=== PATIENT | male | born 1990 | race African-American/Black ===

== ENCOUNTER 2023-09-26 07:59 | Inpatient (IN) | payer OTHER, SELFPAY ==
[2023-09-23 11:16] VITALS: BP 137/82
[2023-09-23 13:11] LABS: % Basophils 0.3 % (0-2); % Eosinophils 2.2 % (0-6); % Immature Granulocytes 0.3 % (0-0.5); % Lymphocytes 14.1 % (20.5-51.1); % Monocytes 6.3 % (1.7-9.3); % Neutrophils 76.8 % (42.2-75.2); Absolute Eosinophils 0.3 10^3/uL (0-0.7); Absolute Lymphocytes 1.7 10^3/uL (1.2-3.4); Absolute Monocytes 0.8 10^3/uL (0.1-0.6); Absolute Neutrophils 9.1 10^3/uL (1.4-6.5); Hematocrit 42.2 % (39.0-52.0); Hemoglobin 13.7 g/dL (13.0-18.0); Mean Corp Hgb Conc. 32.5 g/dL (33.0-37.0); Mean Corpuscular Hgb 25.8 pg (27.0-31.0); Mean Corpuscular Volume 79.3 fL (80.0-94.0); Mean Platelet Volume 9.3 fL (7.4-10.4); Nucleated Red Blood Cells % 0 % (-); Platelet Count 357 10^3/uL (130-400); Red Blood Cell Count 5.32 10^6/uL (4.70-6.10); Red Cell Dist. Width 13.3 % (11.5-14.5); White Blood Cell Count 11.9 10^3/uL (4.8-10.8)
--- NOTE | 2023-09-23 13:14 | ED.GENMED ---
History of Present Illness
General
Chief Complaint: Skin Problem
Source: patient
Exam Limitations: none
Time Seen by Provider: 09/23/23 12:02
Nursing documentation reviewed up to this point in time: agreed with
History of Present Illness
History of Present Illness:
pt is a 32 y/o M prisoner from [facility]
on eliquis for h/o DVT
says about 1 week ago he developed what he is calling a 'hair bump' in the right facial hair right submandibular region and it has grown over th past week
he just notified someone from medical who sent him in for oncern for large area swelling and possible IV abx
they did start bactrim this morning
pt has had another abcess on the other side of his bennett a while back that ruptured on its own
he has no voice change, no painful swallowing, no trouble breathing
no night sweats, no weight loss
Past History
Past History
ED Past Medical History: Other (dvt)
Social History
Tobacco: Smoker
Living: skilled nursing
Review of Systems
Review of Systems
Allergies reviewed?: Yes
All Other Systems: Not applicable
Phy Exam
Physical Exam
Physical Exam:
GENERAL: Alert , in no apparent distress
EYE: pupils equal and reactive
NECK: Supple
large fluctuant abscess right submandibular area within the bennett, mild tenderness
ENT: o/p clr, mmm.
submental space soft
no swelling of the parotid
CARDIAC: Regular rate and rhythm .
LUNGS: Clear breath sounds bilaterally, no acute respiratory distress, no wheezes/rales/rhonchi
NEUROLOGICAL: Alert and oriented, no focal neuro deficits
SKIN: Warm and dry, skin intact.
MUSCULOSKELETAL: No edema, well perfused. neg audra's sign
PSYCH: Normal and appropriate interaction.
Course
Orders/Labs/Results
Orders:
Orders
09/23/23 12:00
Complete Blood Count/With Diff Urgent
Comprehensive Metabolic Panel Urgent
Monotest Urgent
Blood Culture Q30M
DAVID Source: Blood/Venous
Specimen Description:
09/23/23 12:25
CT Neck With Iv Contrast Urgent
Comment:
Reason For Exam: right sided neck abscess submandibular, large
09/23/23 12:45
Blood Culture Q30M
DAVID Source: Blood/Venous
Specimen Description:
09/23/23 15:49
MRSA Screen Routine
DAVID Source: Nose
Specimen Description:
09/23/23 15:56
Vancomycin [Vancocin] 2,000 mg 0.9% Sodium Chloride 500 ml [Nss] 500 ml IV NOW
09/23/23 16:21
Admit/Transfer Patient As Directed
Co-Sign Provider:
Level of Care: Observation services
Assign to:: Medical/Surgical
Physician / Group: ricci
Diagnosis: sbcutacaenous abscess right neck
Code Status As Directed
Resuscitation Status: Full Code
Abnormal Lab Results
09/23/23
12:00
WBC 11.9 H 10^3/uL
(4.8-10.8)
MCV 79.3 L fL
(80.0-94.0)
MCH 25.8 L pg
(27.0-31.0)
MCHC 32.5 L g/dL
(33.0-37.0)
Absolute Neuts (auto) 9.1 H 10^3/uL
(1.4-6.5)
Absolute Monos (auto) 0.8 H 10^3/uL
(0.1-0.6)
Neutrophils % 76.8 H %
(42.2-75.2)
Lymphocytes % 14.1 L %
(20.5-51.1)
09/23/23 12:00
09/23/23 12:00
Vital Signs
Initial and Last Documented VS:
Initial Vital Signs
Temp Pulse Resp BP Pulse Ox
98.8 F 88 20 137/82 98
09/23/23 11:16 09/23/23 11:16 09/23/23 11:16 09/23/23 11:16 09/23/23 11:16
Last Documented Vital Signs
Temp Pulse Resp BP Pulse Ox
98.8 F 88 20 137/82 98
09/23/23 11:16 09/23/23 11:16 09/23/23 11:16 09/23/23 11:16 09/23/23 11:16
MDM/Problems Addressed
Differential Diagnosis Includes:
abscess, parotidits, lymphoma,
MDM/Problems Addressed:
32 y/o M h/o dvt on eliquis; from [facility]; neck abscess within his facial hair which he says started 1 week ago, no airway issues, no swallowing problems; no fever;
no submental swelling, sublingual swelling;
wbc 12
[address] shows a large abscess right neck with some peripheral wall edema, it is inferior and lateral to parotid; d/w ENT stiefel who will see pt in consult; will hold on I&D by ED at this time pending ENT eval; he did not feel pt would likely need OR.;
recommended iv vanc;
*Critical Care Note
Total Time (30-74mins, 75-104mins- exclusive of procedures): Not Applicable
ED Attending Note
-
Portions of this chart may have been created with voice recognition software.� Occasional wrong word or��sound alike� substitutions may have occurred due to the inherent limitations of voice recognition software.
Discharge Plan
Departure
Patient Disposition: Admit
Date of Disposition: 09/23/23
Time of Disposition: 15:48
Admit to: Med/Surg
Presentation/result/management discussed w/ accepting MD/DO: Hospitalist
Condition: Fair
Covid-19: Not Applicable
Discharge Problem:
Abscess of skin of neck
Interventions
Interventions:
*Risk Screen - Suicide Last Done: 09/23/23 11:16
*General Assessment Last Done: 09/23/23 11:16
*Neglect/Abuse Screening Last Done: 09/23/23 11:16
ED-Skin Assessment Last Done: 09/23/23 12:33
[2023-09-23 13:24] LABS: ALT (SGPT) 24 U/L (0-50); AST (SGOT) 21 U/L (17-59); Albumin 4.4 g/dl (3.5-5.0); Alkaline Phosphatase 95 U/L (38-126); Blood Urea Nitrogen 11 mg/dl (9-20); Calcium 9.8 mg/dl (8.4-10.2); Carbon Dioxide 28 mmol/L (22-30); Chloride 100 mmol/L (98-107); Estimated Creatinine Clearance 121 ml/min; Glucose 83 mg/dl (70-99); Potassium 4.5 mmol/L (3.5-5.1); Sodium 139 mmol/L (135-145); Total Bilirubin 0.5 mg/dl (0.2-1.3); Total Protein 8.2 g/dl (6.3-8.2); eGFR > 60.00
[2023-09-23 13:26] LABS: Monotest Negative (Negative)
--- NOTE | 2023-09-23 16:24 | HPS.HSE ---
Family Physician
-
Family Physician: Facility [facility]
Chief Complaint
-
right facial swelling
History of Present Illness
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
submandibular region which he picked a week ago. Since then he has been having swelling in the region and some drainage of pus from the skin. He does have some mild pain with swallowing. He denies difficulty breathing. He denies any fevers or
chills.
He was started on Bactrim this morning and tried using warm compress today without improvement.
He had another abscess on the left side of his bennett previously that ruptured on its own and has now resolved.
He denies any current drug use.
Medical History
Past Medical History
Past Medical History: Reports Other (DVT in 2008 and recurrence in 2016 on Eliquis, Crohn's disease, anxiety/depression, schizophrenia)
Past Surgical History: Reports None
Social History
Tobacco: Non-smoker
Alcohol: None
Drug: None
Family History
Family History: Not pertinent
Allergies / Home Medications
Allergies reflects when Allergies were last updated in [employer].
Home Medications with original date entered in [employer]
Allergy/Medication List:
Allergies
Allergy/AdvReac Type Severity Reaction Status Date / Time
No Known Allergies Allergy Unverified 09/23/23 11:22
Home Medications
apixaban 5 mg tablet (Eliquis) 5 mg PO BID 09/23/23
ibuprofen 400 mg tablet 400 mg PO BID 09/23/23
mirtazapine 45 mg tablet 45 mg PO HS 09/23/23
perphenazine 4 mg tablet 4 mg PO BID 09/23/23
prazosin 1 mg capsule 1 mg PO HS 09/23/23
Review of Systems
-
History Source: Patient
A 12 point ROS was completed and negative except as noted: Yes
Constitutional: Reports No Symptoms
EENT: Reports No Symptoms
Respiratory: Reports No Symptoms
Cardiac: Reports No Symptoms
Abdomen/GI: Reports No Symptoms
: Reports No Symptoms
Musculoskeletal: Reports No Symptoms
Skin: Reports See HPI
Neurological: Reports No Symptoms
Endocrine: Reports No Symptoms
Hematologic/Lymphatic: Reports No Symptoms
Psych: Reports No Symptoms
Physical Exam
Vital Signs
Vital Signs
Temp Pulse Resp BP Pulse Ox
98.8 F 88 20 137/82 98
09/23/23 11:16 09/23/23 11:16 09/23/23 11:16 09/23/23 11:16 09/23/23 11:16
Physical Exam
General: Well Developed, Well Nourished and No Apparent Distress
HEENT: NormoCephalic, Moist mucous membranes and Atraumatic
Respiratory: Clear
Cardiac: S1/S2 and Regular Rhythm; No Murmur or Rub
GI: Soft, Non Tender, Non Distended and Normal Bowel Sounds; No Organomegaly
Rectal: Deferred by Provider
Musculoskeletal: No Clubbing, No Cyanosis and No Edema
Skin: Other (right facial swelling, crusted follicle ); No Rash
Neuro: Nonfocal/grossly intact
Laboratory Results
-
09/23/23 12:00
09/23/23 12:00
Laboratory Results
Total Bilirubin 0.5 mg/dl (0.2-1.3) 09/23/23 12:00
AST 21 U/L (17-59) 09/23/23 12:00
ALT 24 U/L (0-50) 09/23/23 12:00
Alkaline Phosphatase 95 U/L (38-126) 09/23/23 12:00
Data Reviewed
-
Lab Data: Labs Reviewed by me
Old Records: Reviewed
Impression/Plan
-
IMPRESSION:
PLAN:
# Subcutaneous abscess right side of the neck due to infected skin follicle
-As per CT scan measuring 3.9 x 3.3 x 2 cm located superficial lateral to the deep inferior aspect of the parotid gland
-Blood cultures
-Vancomycin
-ENT to see patient
-N.p.o. for now, can likely start diet after ENT evaluation/I&D
-Continue ibuprofen for pain
History of DVT in 2008, recurrent in 2016
-Hold Eliquis until I&D can be performed
Crohn's disease
Anxiety/depression
-Continue mirtazapine, prazosin
Schizophrenia
-Continue perphenazine
Full code
DVT prophylaxis�none
N.p.o. for now
[2023-09-23] MEDS: MORPHINE SULFATE 4 MG IV (17:51)
--- NOTE | 2023-09-23 19:24 | PHA.VAN.IN ---
Assessment
- Assessment
Renal Function: Unknown baseline
Concomitant Antimicrobials: NONE
- Previous Dosing Experience
Previous Regimen: NONE
AUC Dosing Plan
- Dosing Variables
Dosing Weight (kg): 87.2
Dosing CrCl (ml/min): 121
Vd coefficient (L/kg): 0.7
- Empiric Dosing
Initial / Loading Dose: 2GM
Maintenance Regimen: 1GM IV Q8H
Estimated AUC (mcg*h/mL): 493
Estimated Peak (mcg*h/mL): 28.9
Estimated Trough (mcg/ml): 13.9
Estimated Half Life (H): 6.6
Pharmacokinetics Vancomycin I
- -
Patient Age: 32
Patient Sex: Male
Vancomycin Day #: 1
Indication: Skin And Soft Tissue (INFECTED HAIR FOLLICLE)
Requesting Provider: PRECIOUS
Height / Weight:
Height 5 ft 10 in
Actual Weight 87.22 kg
Pertinent Past Medical History: PRIOR TX WITH BACTRIM
- Vital Signs / Lab Results
Temp Pulse Resp BP Pulse Ox
98.8 F 88 20 137/82 98
09/23/23 11:16 09/23/23 11:16 09/23/23 11:16 09/23/23 11:16 09/23/23 11:16
Lab Results - Hematology
09/23/23
12:00
WBC 11.9 H
Lab Results - Chemistry
09/23/23
12:00
BUN 11
Creatinine 0.9
Estimated Creat Clear 121
Albumin 4.4
[2023-09-23 19:29] VITALS: BP 124/78; BMI 26.7
[2023-09-23] MEDS: MOTRIN 400 MG PO (20:28)
[2023-09-23] MEDS: TRILAFON 4 MG PO (20:28)
[2023-09-23] MEDS: VANCOCIN 540 MG IV (20:28)
[2023-09-23] MEDS: MINIPRESS 1 MG PO (23:01)
[2023-09-23] MEDS: REMERON 45 MG PO (23:01)
[2023-09-23 23:11] VITALS: BP 115/92
[2023-09-24] MEDS: VANCOCIN 200 IV (05:54)
[2023-09-24 07:00] VITALS: BP 108/67
[2023-09-24 07:03] LABS: % Basophils 0.4 % (0-2); % Eosinophils 5.6 % (0-6); % Immature Granulocytes 0.4 % (0-0.5); % Lymphocytes 15.5 % (20.5-51.1); % Monocytes 8.6 % (1.7-9.3); % Neutrophils 69.5 % (42.2-75.2); Absolute Eosinophils 0.4 10^3/uL (0-0.7); Absolute Lymphocytes 1.2 10^3/uL (1.2-3.4); Absolute Monocytes 0.6 10^3/uL (0.1-0.6); Absolute Neutrophils 5.2 10^3/uL (1.4-6.5); Hemoglobin 13.4 g/dL (13.0-18.0); Mean Corp Hgb Conc. 33.5 g/dL (33.0-37.0); Mean Corpuscular Hgb 26.1 pg (27.0-31.0); Mean Platelet Volume 9.6 fL (7.4-10.4); Nucleated Red Blood Cells % 0 % (-); Platelet Count 346 10^3/uL (130-400); Red Blood Cell Count 5.13 10^6/uL (4.70-6.10); Red Cell Dist. Width 13.3 % (11.5-14.5); White Blood Cell Count 7.5 10^3/uL (4.8-10.8)
[2023-09-24 07:39] LABS: ALT (SGPT) 19 U/L (0-50); AST (SGOT) 20 U/L (17-59); Albumin 3.7 g/dl (3.5-5.0); Alkaline Phosphatase 83 U/L (38-126); Blood Urea Nitrogen 12 mg/dl (9-20); Calcium 9.4 mg/dl (8.4-10.2); Carbon Dioxide 26 mmol/L (22-30); Chloride 104 mmol/L (98-107); Estimated Creatinine Clearance 112 ml/min; Glucose 83 mg/dl (70-99); Potassium 4.7 mmol/L (3.5-5.1); Sodium 138 mmol/L (135-145); Total Bilirubin 0.5 mg/dl (0.2-1.3); Total Protein 7.1 g/dl (6.3-8.2); eGFR > 60.00
--- NOTE | 2023-09-24 07:50 | W.PN.HOSP.TC ---
Today's Communication/Plan
-
see bold, possible d/c later today after seen by ID
Assessment / Plan
Assessment / Plan
Gen: NAD, AAOx3.
Eyes: EOMI, PERRLA, no scleral icterus.
ENMT: Right facial soft tissue edema with overlying dressing with seropurulent drainage
Neck: supple.
CV: RRR, +S1/S2, no m/r/g.
Resp: CTAB, no rales, wheezes, or rhonchi.
Abd: +BS, soft, NT, ND
Skin: No rashes.
Neuro: CN 2-12 intact, non-focal.
Psych: Normal mood and affect.
Subcutaneous abscess right side of the neck due to infected skin follicle:
-As per CT scan measuring 3.9 x 3.3 x 2 cm located superficial lateral to the deep inferior aspect of the parotid gland
-drained by Dr. Delatorre 09/23/23, 10cc puss
-follow BCxs/WCxs
-cont Vancomycin
-ID to see patient
-Continue ibuprofen for pain
History of DVT in 2008, recurrent in 2015
-Hold Eliquis until I&D can be performed
Crohn's disease
Anxiety/depression
-Continue mirtazapine, prazosin
Schizophrenia
-Continue perphenazine
Full code
Anticipated Discharge: Today
Subjective/Interval History
-
Date of Service: September 24, 2023
No new complaints.
Objective Data
-
Labs:
Laboratory Results
09/24/23
06:30
WBC 7.5
Hgb 13.4
Hct 40.0
Plt Count 346
Sodium 138
Potassium 4.7
Chloride 104
Carbon Dioxide 26
BUN 12
Creatinine 1.0
Glucose 83
Calcium 9.4
Total Bilirubin 0.5
AST 20
ALT 19
Alkaline Phosphatase 83
Vital Signs:
Vital Signs
Temp Pulse Resp BP Pulse Ox
98.0 F 80 16 115/92 97
09/23/23 23:11 09/23/23 23:11 09/23/23 23:11 09/23/23 23:11 09/23/23 23:11
I&O
09/23/23 09/24/23 09/25/23
06:59 06:59 06:59
Intake Total 1460 / 1460
Balance 1460 / 1460
[2023-09-24] MEDS: TRILAFON 4 MG PO ×2 (08:25→19:18)
[2023-09-24] MEDS: MOTRIN 400 MG PO ×2 (08:25→19:18)
--- NOTE | 2023-09-24 08:36 | PHA.VAN.FU ---
Vancomycin Assessment / Plan
- Assessment
Renal Function: Stable
WBC's are: WNL
In the past 24 hrs, patient has been: Afebrile
- Dosing Plan
Adjust Regimen to: Vanc 1500mg Q12H starting at 1800
New Regimen Predicts: AUC (507 - 543), Peak (34.4 - 35.7), Trough (11.4 - 12.9)
Dosing Comments: utilized CrCl 112-121 for dosing calculations
- Monitoring Plan
No level(s) ordered at this time: consider levels in next few days
- Follow Up
Pharmacy will continue to follow.
Vancomycin Follow UP
- -
Patient Age: 32
Patient Sex: Male
Vancomycin Day #: 2
Indication: Skin And Soft Tissue
Requesting Provider: Dr. Cherry
Pertinent Antimicrobial Allergies:
NKDA
Height / Weight:
Height 5 ft 11 in
Actual Weight 86.778 kg
- Vital Signs / Lab Results
Temp Pulse Resp BP Pulse Ox
97.8 F 71 18 108/67 98
09/24/23 07:00 09/24/23 07:00 09/24/23 07:00 09/24/23 07:00 09/24/23 07:00
Lab Results - Hematology
09/23/23 09/24/23
12:00 06:30
WBC 11.9 H 7.5
Lab Results - Chemistry
09/23/23 09/24/23
12:00 06:30
BUN 11 12
Creatinine 0.9 1.0
Estimated Creat Clear 121 112
Albumin 4.4 3.7
[2023-09-24] MEDS: ELIQUIS 5 MG PO ×2 (10:44→19:18)
--- NOTE | 2023-09-24 10:44 | CON.ID ---
Consultation
-
Date/Time Consultation Requested: 09/24/23 8:49
Date/Time Consultation Performed: 09/24/23 10:44
Requesting Provider: Dr Morejon
Performing Provider: Dr Skaggs
Reason for Consultation: R facial abscess
Chief Complaint / Past History
Chief Complaint
right facial swelling
History of Present Illness
Mr Pavon is a 32 year old male with history of Crohns Disease on no current therapies, previous L sided facial abscess, Schizophrenia who presented here yesterday for a right submanidular lesion. It started as an ingrown hair that he picked, then
over abotu 1 week developed swelling and drainage of puss. Also mild pain with swallowing. No diffiuclty breathing, fevers or chills. He was started on bactrim and warm compresses on the day of arrival but did not improve and was brought here for
assessment.
Since arrival here he has been afebrile, bp stable, WBC initially 11.9 now 7.5, hgb 13, plt 346, there is not L shift, cr 0.9, 09/22 neck screen with IV contrast: Subcutaneous abscess on the right side of the neck, measuring 3.9 x 3.3 x 2.0 cm,
located superficial and lateral to the deep inferior aspect of the parotid gland. 2. Associated subcutaneous inflammatory change on the right side of the neck. Blood cultures x2 in progress. No abscess culture thus far. By report 10 ccs of puss
were drained by ENT but note is not yet in the system.
Past History
Additional Past Medical History:
DVT in 2009 and recurrence in 2016 on Eliquis, Crohn's disease, anxiety/depression, schizophrenia
Past Surgical History: None
Allergy History:
No Known Allergies Allergy (Unverified 09/23/23 11:22)
Medications Reviewed: Yes
Social History
Tobacco: Non-Smoker
Alcohol: None
Drug: None
Family History
Family History: Not Pertinent
Review of Systems
Review of Systems
General: Negative Fever or Chills
All systems: All other systems were reviewed and were negative
Vital Signs
Temp Pulse Resp BP Pulse Ox
97.8 F 71 18 108/67 98
09/24/23 07:00 09/24/23 07:00 09/24/23 07:00 09/24/23 07:00 09/24/23 07:00
Physical Exam
Physical Exam
Constitutional: No Acute Distress
Head: Other (large fluctuant lesion on the R chin actively draining purulent material)
Cardiovascular: Regular Rate and S1/S2; Negative Murmur or Rub
Pulmonary: Clear and Symmetric; Negative Wheezes, Rales or Rhonchi
Gastrointestinal: Soft, Non Tender, Non Distended and Normal Bowel Sounds
Skin: Warm and Dry; Negative Rash or Jaundice
Lab / Diagnostic Study Results
09/24/23 06:30
09/24/23 06:30
Abs Immat Gran (auto) 0.0 10^3/uL (0-0.05) 09/24/23 06:30
Absolute Neuts (auto) 5.2 10^3/uL (1.4-6.5) 09/24/23 06:30
Absolute Lymphs (auto) 1.2 10^3/uL (1.2-3.4) 09/24/23 06:30
Absolute Monos (auto) 0.6 10^3/uL (0.1-0.6) 09/24/23 06:30
Absolute Basos (auto) 0.0 10^3/uL (0-0.2) 09/24/23 06:30
Immature Gran % 0.4 % (0-0.5) 09/24/23 06:30
Neutrophils % 69.5 % (42.2-75.2) 09/24/23 06:30
Lymphocytes % 15.5 % (20.5-51.1) L 09/24/23 06:30
Monocytes % 8.6 % (1.7-9.3) 09/24/23 06:30
Eosinophils % 5.6 % (0-6) 09/24/23 06:30
Basophils % 0.4 % (0-2) 09/24/23 06:30
Microbiology Results
Micro:
09/23/23 12:45 Blood Culture - Pending
Blood/Venous
09/23/23 12:00 Blood Culture - Pending
Blood/Venous
Assessment / Plan
Large Facial Abscess S/p I&D
- blood cultures x2 in progress
- wound culture obtained by me
- continue vancomycin at this time
- coming from [place], I suspect a resistant staph, will for culture/sensitivity
- follow clinically
Care Review
Plan reviewed with: Physician (Dr Morejon - [email or web address])
[2023-09-24 15:00] VITALS: BP 94/62
[2023-09-24] MEDS: VANCOCIN 300 MG IV (17:56)
[2023-09-24] MEDS: VANCOCIN 300 ML IV (17:56)
[2023-09-24] MEDS: MINIPRESS 1 MG PO (22:39)
[2023-09-24] MEDS: REMERON 45 MG PO (22:39)
[2023-09-24 23:14] VITALS: BP 117/87
[2023-09-25 06:00] VITALS: BMI 27.0
[2023-09-25] MEDS: VANCOCIN 300 ML IV ×2 (06:15→17:42)
[2023-09-25] MEDS: VANCOCIN 300 MG IV ×2 (06:15→17:42)
[2023-09-25 07:31] VITALS: BP 93/58
[2023-09-25] MEDS: MOTRIN 400 MG PO ×2 (08:03→19:41)
[2023-09-25] MEDS: ELIQUIS 5 MG PO ×2 (08:03→19:41)
[2023-09-25] MEDS: TRILAFON 4 MG PO ×2 (08:03→19:41)
--- NOTE | 2023-09-25 08:23 | W.PN.HOSP.TC ---
Today's Communication/Plan
-
see bold
Assessment / Plan
Assessment / Plan
Gen: NAD, AAOx3.
Eyes: EOMI, PERRLA, no scleral icterus.
ENMT: Right facial soft tissue edema with overlying dressing with seropurulent drainage (improved from yesterday)
Neck: supple.
CV: remains RRR, +S1/S2, no m/r/g.
Resp: remains CTAB, no rales, wheezes, or rhonchi.
Abd: +BS, soft, NT, ND
Skin: No rashes.
Neuro: CN 2-12 intact, non-focal.
Psych: Normal mood and affect.
09/23/23 12:45 Blood/Venous Blood Culture - Preliminary
No Growth in 24 hours- Final report to follow
09/23/23 12:00 Blood/Venous Blood Culture - Preliminary
No Growth in 24 hours- Final report to follow
09/24/23 11:00 Abscess Gram Stain - Preliminary
Subcutaneous abscess right side of the neck due to infected skin follicle:
-As per CT scan measuring 3.9 x 3.3 x 2 cm located superficial lateral to the deep inferior aspect of the parotid gland
-drained by Dr. Delatorre 09/23/23, 10cc puss
-follow BCxs/WCxs
-cont Vancomycin
-ID/ENT following
-Continue ibuprofen for pain
Other problems:
h/o DVT in 2008, recurrent in 2016: cont Eliquis
Crohn's disease
Anxiety/depression: Continue mirtazapine, prazosin
Schizophrenia: Continue perphenazine
FULL/Eliquis
Anticipated Discharge: Within 24 hours
Subjective/Interval History
-
Date of Service: September 25, 2023
No new complaints.
Objective Data
-
Vital Signs:
Vital Signs
Temp Pulse Resp BP Pulse Ox
97.6 F 75 16 93/58 99
09/25/23 07:31 09/25/23 07:31 09/25/23 07:31 09/25/23 07:31 09/25/23 07:31
I&O
09/24/23 09/25/23 09/26/23
06:59 06:59 06:59
Intake Total 1460 / 1460 720 / 720
Balance 1460 / 1460 720 / 720
--- NOTE | 2023-09-25 08:40 | W.PN.ENT ---
Today's Communication
-
Clinically improving.
Awaiting culture and sensitivity.
Impression / Plan
-
A/X-60-ezfm-old male with right facial abscess.
-s/p I&D in ER Friday evening.
-Awaiting cultures.
-Clinically patient seems to be improving.
-Continue IV antibiotics as per ID.
-Continue local care, warm compresses.
-Patient can likely be discharged from ENT perspective.
-Recommend continued oral antibiotics for at least the next 10 days.
Subjective Data
-
Patient states he is doing well.
No significant pain, denies fevers or chills.
Using warm compresses on right neck.
Tolerating p.o. diet without difficulty.
Denies any new complaints.
Objective Data
-
Vital Signs
Temp Pulse Resp BP Pulse Ox
97.6 F 75 16 93/58 99
09/25/23 07:31 09/25/23 07:31 09/25/23 07:31 09/25/23 07:31 09/25/23 07:31
Intake & Output
09/24/23 09/25/23 09/26/23
06:59 06:59 06:59
Intake:
Oral fluids 720 / 720 720 / 720
IV fluids (Total) 740 / 740
Other:
Number of approximated MODERATE 1
amounts of urine
Number of approximated LARGE 2
amounts of urine
Lab Results
09/24/23 06:30
09/24/23 06:30
Calcium 9.4 mg/dl (8.4-10.2) 09/24/23 06:30
Total Bilirubin 0.5 mg/dl (0.2-1.3) 09/24/23 06:30
AST 20 U/L (17-59) 09/24/23 06:30
ALT 19 U/L (0-50) 09/24/23 06:30
Alkaline Phosphatase 83 U/L (38-126) 09/24/23 06:30
Physical Exam
-
Awake, alert, oriented, in no acute distress.
Right facial/neck abscess with decreased swelling.
Some soft tissue/skin edema persists.
Mild overlying skin erythema and scaling noted.
Minimal tenderness.
Scant purulent drainage.
No significant lymphadenopathy palpable.
Data Reviewed
-
Micro Results: Report Reviewed (Pending)
--- NOTE | 2023-09-25 08:52 | PHA.VAN.FU ---
Addendum entered and electronically signed by Zoraida Ba [facility] 09/25/23 15:50:
BUN & SCR ordered per protocol
Original Note:
Vancomycin Assessment / Plan
- Assessment
Renal Function: No New Labs Today
In the past 24 hrs, patient has been: Afebrile
- Dosing Plan
Continue: Vanc 1500mg Q12H
- Monitoring Plan
No level(s) ordered at this time: consider levels in next few days
- Follow Up
Pharmacy will continue to follow.
Vancomycin Follow UP
- -
Patient Age: 32
Patient Sex: Male
Vancomycin Day #: 3
Indication: Skin And Soft Tissue
Requesting Provider: Dr. Cherry
Pertinent Antimicrobial Allergies:
NKDA
Height / Weight:
Height 5 ft 11 in
Actual Weight 87.742 kg
Pertinent Past Medical History: BMI ~27
- Vital Signs / Lab Results
Temp Pulse Resp BP Pulse Ox
97.6 F 75 16 93/58 99
09/25/23 07:31 09/25/23 07:31 09/25/23 07:31 09/25/23 07:31 09/25/23 07:31
Lab Results - Hematology
09/23/23 09/24/23
12:00 06:30
WBC 11.9 H 7.5
Lab Results - Chemistry
09/23/23 09/24/23
12:00 06:30
BUN 11 12
Creatinine 0.9 1.0
Estimated Creat Clear 121 112
Albumin 4.4 3.7
Microbiology Results
09/23/23 12:45 Blood Culture - Preliminary
Blood/Venous No Growth in 24 hours- Final report to follow
09/23/23 12:00 Blood Culture - Preliminary
Blood/Venous No Growth in 24 hours- Final report to follow
09/24/23 11:00 Gram Stain - Preliminary
Abscess
--- NOTE | 2023-09-25 09:30 | CM ---
Chart reviewed: Infected skin follicle right neck; ID Consult; Cultures pending; IV ABX; Hx DVT, Eliquis on hold.
Will contact [facility] when stable for discharge #[phone]
[2023-09-25 15:38] VITALS: BP 100/63
--- NOTE | 2023-09-25 16:20 | W.PN.ID1 ---
Date of Service
Date of Service: September 25, 2023
Today's Communication
- continue vancomycin at this time - likely switch to oral therapy tomorrow
Assessment / Plan
Large Facial Abscess S/p I&D
- blood cultures x2 in progress
- wound culture in progress no growth to date
- continue vancomycin at this time - likely switch to oral therapy tomorrow
- follow clinically
Chief Complaint
-: Other (facial abscess)
Subjective / Review of Systems
afebrile
bp stable
abscess culture no growth to date
blood cultures x2 no growth to date
Vital Signs / Physical Exam
Vital Signs
Vital Signs
Temp Pulse Resp BP Pulse Ox
97.9 F 81 16 100/63 98
09/25/23 15:38 09/25/23 15:38 09/25/23 15:38 09/25/23 15:38 09/25/23 15:38
Physical Exam
Constitutional: No Acute Distress
Cardiovascular: Regular Rate and S1/S2; Negative Murmur or Rub
Pulmonary: Clear and Symmetric; Negative Wheezes or Rales
Gastrointestinal: Soft, Non Tender, Non Distended and Normal Bowel Sounds
Skin: Warm and Dry; Negative Rash or Jaundice
Objective Data
Lab Data
Lab Results
09/24/23 06:30
09/24/23 06:30
Estimated Creat Clear 112 ml/min 09/24/23 06:30
Total Bilirubin 0.5 mg/dl (0.2-1.3) 09/24/23 06:30
AST 20 U/L (17-59) 09/24/23 06:30
ALT 19 U/L (0-50) 09/24/23 06:30
Alkaline Phosphatase 83 U/L (38-126) 09/24/23 06:30
Most recent labs reviewed.
Micro Results:
09/23/23 12:45 Blood Culture - Preliminary
Blood/Venous No Growth in 48 hours- Final report to follow
09/23/23 12:00 Blood Culture - Preliminary
Blood/Venous No Growth in 48 hours- Final report to follow
09/24/23 11:00 Wound Culture - Preliminary
Abscess Gram Stain - Preliminary
09/25/23 08:12 MRSA Screen - Pending
Nose
Care Review
Plan reviewed with: Physician (Dr Morejon - cyril)
[2023-09-25] MEDS: REMERON 45 MG PO (21:13)
[2023-09-25] MEDS: MINIPRESS 1 MG PO (21:14)
[2023-09-25 21:18] VITALS: BP 120/77
[2023-09-25 23:41] VITALS: BP 109/57
[2023-09-26 06:00] VITALS: BMI 27.0
[2023-09-26] MEDS: VANCOCIN 300 ML IV (06:09)
[2023-09-26] MEDS: VANCOCIN 300 MG IV (06:09)
[2023-09-26 06:33] LABS: Hemoglobin 13.8 g/dL (13.0-18.0); Mean Corp Hgb Conc. 32.1 g/dL (33.0-37.0); Platelet Count 380 10^3/uL (130-400); Red Blood Cell Count 5.31 10^6/uL (4.70-6.10); Red Cell Dist. Width 13.2 % (11.5-14.5)
[2023-09-26 07:28] LABS: Blood Urea Nitrogen 16 mg/dl (9-20); Estimated Creatinine Clearance 112 ml/min
--- NOTE | 2023-09-26 07:39 | W.PN.HOSP.TC ---
Addendum entered and electronically signed by Valerio Morejon MD 09/26/23 12:18:
Total time spent on d/c = 31 min. This included today's physical exam, progress note, review of laboratory and diagnostic data, preparation of discharge documents and prescriptions, and discussions about the pt's hospital course and discharge plan
with the patient and other medical equipment repair technician involved in the patient's care.
Original Note:
Today's Communication/Plan
-
Discharge later today.
Assessment / Plan
Assessment / Plan
Gen: NAD, AAOx3.
Eyes: EOMI, PERRLA, no scleral icterus.
ENMT: Right facial soft tissue edema with overlying C/D/I dressing
Neck: supple.
CV: Continues to remain RRR, +S1/S2, no m/r/g.
Resp: Continues to remain CTAB, no rales, wheezes, or rhonchi.
Abd: +BS, soft, NT, ND
Skin: No rashes.
Neuro: CN 2-12 intact, non-focal.
Psych: Normal mood and affect.
09/23/23 12:45 Blood/Venous Blood Culture - Preliminary
No Growth in 48 hours- Final report to follow
09/23/23 12:00 Blood/Venous Blood Culture - Preliminary
No Growth in 48 hours- Final report to follow
09/24/23 11:00 Abscess Wound Culture - Preliminary
09/24/23 11:00 Abscess Gram Stain - Preliminary
Subcutaneous abscess right side of the neck due to infected skin follicle:
-As per CT scan measuring 3.9 x 3.3 x 2 cm located superficial lateral to the deep inferior aspect of the parotid gland
-drained by Dr. Delatorre 09/23/23, 10cc puss
-follow BCxs/WCxs
-cont Vancomycin as per ID
-Continue ibuprofen for pain
Other problems:
h/o DVT in 2008, recurrent in 2016: cont Eliquis
Crohn's disease
Anxiety/depression: Continue mirtazapine, prazosin
Schizophrenia: Continue perphenazine
FULL/Eliquis
Anticipated Discharge: Today
Subjective/Interval History
-
Date of Service: September 26, 2023
No new complaints.
Objective Data
-
Labs:
Laboratory Results
09/26/23
06:15
WBC 8.0
Hgb 13.8
Hct 43.0
Plt Count 380
BUN 16
Creatinine 1.0
Vital Signs:
Vital Signs
Temp Pulse Resp BP Pulse Ox
97.6 F 89 18 109/57 98
09/25/23 23:41 09/25/23 23:41 09/25/23 23:41 09/25/23 23:41 09/25/23 23:41
I&O
09/25/23 09/26/23 09/27/23
06:59 06:59 06:59
Intake Total 720 / 720 1380 / 1380
Balance 720 / 720 1380 / 1380
[2023-09-26 07:48] VITALS: BP 102/64
[2023-09-26] MEDS: MOTRIN 400 MG PO (07:49)
[2023-09-26] MEDS: TRILAFON 4 MG PO (07:49)
[2023-09-26] MEDS: ELIQUIS 5 MG PO (07:49)
[2023-09-26 13:00] VITALS: BP 118/73
--- NOTE | 2023-09-26 13:03 | CM ---
Reviewed chart, patient is medically cleared for discharge, confirmed by RN.
# For report, and fax [phone]
Plan: Case management will continue to follow and assist with discharge planning. Back to [facility].
--- NOTE | 2023-09-26 13:58 | W.DCSUMMARY ---
Discharge Summary
Discharge Data
Date of Admission: 09/26/23
Date of Discharge: 09/26/23
-
Pending Results: No
Hospital Course
Primary diagnoses:
Subcutaneous abscess right side of the neck due to infected skin follicle s/p drainage
Secondary diagnoses:
h/o deep vein thrombosis in 2009, recurrent in 2016
Crohn's disease
Anxiety
Depression
Schizophrenia
Consultants:
ENT
Infectious disease
Imaging:
CT neck:
1. Subcutaneous abscess on the right side of the neck, measuring 3.9 x 3.3 x 2.0 cm, located superficial and lateral to the deep inferior aspect of the parotid gland.
2. Associated subcutaneous inflammatory change on the right side of the neck.
Hospital course: 32-year-old male who presented with right facial swelling as outlined in the H&P done on admission. CT neck above. The patient's abscess was drained by Dr. Delatorre 09/23/23 and 10cc puss was drained. Blood cultures no growth to
date. Wound culture grew coag negative staph. The patient was on vancomycin as per infectious disease. On discharge infectious disease recommended Bactrim for 14 further days.
Discharge Plan
-
Patient Disposition: Senior Living
Discharge Diagnosis/Procedures: Right facial abscess status post drainage
Condition: Good
Diet: As tolerated
Activity: As tolerated
Driving Restrictions: As prior to admission
Referrals:
[facility] [Family Provider] - Immediately
Prescriptions:
New
sulfamethoxazole-trimethoprim [Bactrim DS] 800-160 mg tablet
1 tab PO BID Qty: 28 0RF
Rx Instructions:
14 days
Continued
prazosin 1 mg Capsule
1 mg PO HS
perphenazine 4 mg Tablet
4 mg PO BID
mirtazapine 45 mg Tablet
45 mg PO HS
Eliquis 5 mg Tablet
5 mg PO BID
Discontinued
ibuprofen 400 mg Tablet
400 mg PO BID
Discharge Orders:
Discharge Patient (As Directed); Ordered 09/26/23
Ordered By: Valerio Morejon
Discharge Date and Time
Discharge Date/Time: 09/26/23 13:34
Print Language: TURKISH
== END 2023-09-26 13:34 | DRG 603 ==
LOC: 3 WEST ACU 07:59
PROVIDERS: Physician Assistant; ADMITTING PHYSICIAN Hospitalist; ATTENDING PHYSICIAN Internal Medicine; CONSULT PHYSICIAN Otolaryngology; CONSULT PHYSICIAN Student in an Organized Health Care Education/Training Program; EMERGENCY PHYSICIAN Emergency Medicine
PROC: 0H94XZZ Drainage of Neck Skin, External Approach (ICD-10-PCS; 2023-09-23)
DX: L02.11 Cutaneous abscess of neck (principal); K50.90 Crohn's disease, unspecified, without complications; F41.9 Anxiety disorder, unspecified; F32.A Depression, unspecified; F20.9 Schizophrenia, unspecified; B95.7 Other staphylococcus as the cause of diseases classified elsewhere; Z86.718 Personal history of other venous thrombosis and embolism; Z79.01 Long term (current) use of anticoagulants
CPT/HCPCS: 70491; 80053; 82565; 84520; 85025; 85027; 86308; 87040; 87070; 87205; 99285; Q9967